=== PATIENT | male | born 1985 ===

== ENCOUNTER 2022-02-17 16:20 | Emergency (ER) | payer SELFPAY ==
[~2022-02-17] VITALS: Ht 170.2 cm; Wt 69.5 kg
[2022-02-17 16:22] VITALS: BP 116/84
== END 2022-02-17 17:13 ==
LOC: ER 16:21
DX: L53.8 Other specified erythematous conditions (principal); Z65.0 Conviction in civil and criminal proceedings without imprisonment
CPT/HCPCS: 82948; 99283